=== PATIENT | male | born 1950 | race Caucasian/White ===

== ENCOUNTER → 2020-10-08 08:59 | Outpatient (CLI) | payer MEDICARE ==
[2016-04-25 06:44] VITALS: BMI 27.6
[~2020-10-08 08:59] MED LIST: ANTIBIOTIC PO; HYDROCODONE-APA1 TAB PO; VALIUM5 MG PO
== END | disposition home or self-care (01) ==
LOC: D.RAD 08:59
PROVIDERS: ATTEND Internal Medicine Gastroenterology
DX: R14.2 Eructation (principal); R68.81 Early satiety; R14.0 Abdominal distension (gaseous); R15.0 Incomplete defecation; K20.80 Other esophagitis without bleeding